=== PATIENT | male | born 1980 | race Caucasian/White ===

== ENCOUNTER 2017-05-02 10:36 | Emergency (ER) | payer MEDICAID ==
[~2017-05-02] VITALS: Ht 165.1 cm; Wt 60.0 kg
[2017-05-02] MEDS ORDERED: SODIUM CHLORIDE 0.9% 1,000 ML IV ONE (11:44)
[2017-05-02] MEDS ORDERED: ONDANSETRON HCL 4MG/2ML VIAL IV ONE (11:45)
[2017-05-02] MEDS ORDERED: DIPHENHYDRAMINE 50MG/ML VIAL IV ONE (11:45)
[2017-05-02] MEDS ORDERED: LORAZEPAM 1MG TABLET PO ONE (11:45)
[2017-05-02 12:13] LABS: BASOPHILS % 0.9 % (0.0-2.0); EOSINOPHILS % 1.9 % (0.0-5.0); HEMATOCRIT. 45.3 % (42.0-52.0); HEMOGLOBIN. 15.6 g/dL (14.0-18.0); LYMPHOCYTES % 34.9 % (20.0-50.0); MEAN CORPUSCULAR HEMOGLOBIN 32.1 pg (28.0-32.0); NEUTROPHILS % 54.3 % (40.0-76.0); PLATELET 339 x1000/uL (130-400); RED BLOOD CELL COUNT 4.87 mill/uL (4.7-6.1); RED CELL DISTRIBUTION WIDTH 12.9 % (11.6-14.6)
[2017-05-02 12:29] LABS: CHLORIDE 105 mEq/L (98-107)
[2017-05-02 12:32] LABS: GLUCOSE URINE NEGATIVE (NEGATIVE); KETONES URINE NEGATIVE (NEGATIVE); LEUKOCYTE ESTERASE URINE NEGATIVE (NEGATIVE); NITRITE URINE NEGATIVE (NEGATIVE); OCCULT BLOOD URINE NEGATIVE (NEGATIVE); PROTEIN URINE NEGATIVE (NEGATIVE); SPECIFIC GRAVITY URINE 1.024 (1.005-1.030); UROBILINOGEN URINE 0.2 E.U./dL (0.2-1.0)
[2017-05-02 12:32] LABS: CARBON DIOXIDE 31 mEq/L (21-32); ETHANOL BLOOD < 10 mg/dL
[2017-05-02 12:33] LABS: CLARITY URINE CLEAR (CLEAR); COLOR URINE YELLOW (YELLOW)
[2017-05-02 13:38] LABS: *AMPHETAMINES SCREEN URINE PRESUMTIVE POSITIVE (NEGATIVE); *BARBITURATES SCREEN URINE NEGATIVE (NEGATIVE); *BENZODIAZEPINES SCREEN URINE NEGATIVE (NEGATIVE); *COCAINE SCREEN URINE NEGATIVE (NEGATIVE); CANNABINOID URINE SCREEN PRESUMTIVE POSITIVE (NEGATIVE); METHADONE URINE SCREEN NEGATIVE (NEGATIVE); OPIATES URINE SCREEN NEGATIVE (NEGATIVE); PHENCYCLIDINE URINE SCREEN NEGATIVE (NEGATIVE)
[2017-05-02 14:03] VITALS: BP 109/62
== END 2017-05-02 14:09 | disposition home or self-care (01) ==
LOC: ER 11:07
DX: F15.10 Other stimulant abuse, uncomplicated (principal); R52 Pain, unspecified; R11.0 Nausea; F10.20 Alcohol dependence, uncomplicated; Z88.0 Allergy status to penicillin
CPT/HCPCS: 36415; 80048; 80305; 81003; 85025; 96361; 96374; 96375; 99284; G0482; J1200; J2405; J7030; Z7610